=== PATIENT | female | born 1985 | race Caucasian/White ===

== ENCOUNTER 2019-03-08 15:50 | Emergency (ER) | payer SELFPAY ==
[2019-03-08 16:23] VITALS: BP 122/66; PULSE 98; TEMP 36.7; O2SAT 94
--- NOTE | 2019-03-08 16:30 | W.ED.GENAD ---
Discharge Plan Disposition Patient Disposition: HOME Condition: Fair Discharge Details Chief Complaint: SOB Clinical Impression: Bronchitis Primary Care Provider: Anjelica,Local ED Provider: Kayla Bhatt Home Meds and New Rx's Prescriptions: New prednisone 20 mg tablet 40 mg PO DAILY Qty: 8 RF: 0 benzonatate [Tessalon Perles] 100 mg capsule 100 mg PO TID PRN (Reason: cough) Qty: 10 RF: 0 doxycycline hyclate 100 mg capsule 100 mg PO BID Qty: 10 RF: 0 No Action albuterol sulfate [ProAir HFA] 90 mcg/actuation Hfa Aerosol Inhaler 2 puff INHALATION Q4H RF: 0 Discharge Instructions Instructions: Albuterol (By breathing), Acute Bronchitis (ED) Additional Instructions: Encourage hydration. Tylenol and ibuprofen as needed for discomfort. You were diagnosed with bronchitis today. This is typically a viral etiology. The prednisone will be of best benefit to you. You need to stop smoking. May use [id number] medications of sleep medic management. Honey to help with cough. Given 1 dose of prednisone here, next dose is due tomorrow night. You may use your albuterol inhaler 2 puffs every 4 hours as needed for shortness of breath or wheezing. Please always use a spacer. Begin your doxycycline if you develop fevers, more productive cough, symptoms are not improving over the next 48 hours. Our vision care associate will help establish primary care and follow-up within the next week for reevaluation. If you develop chest pain, difficulty breathing, shortness of breath or the new/worsening symptoms please seek care urgently once again. Stand Alone Forms: Work Release Discharge Data Discharge Date/Time-TO BE ENTERED AT DEPARTURE: 03/08/19 19:16 Medical Decision Making Patient is a 33-year-old presenting with chief complaint of URI. REports that symptoms began approximately 5 days ago. States intially symptoms were more in her head but now they have settled in my chest. Endorses SOB, particularly with cough. Has felt tight. Has used a friends allbuterol inhaler with good sympatomic improvement. No personal hx of asthma. Hx of psoriasis. Has not had symptoms like this historically. She is also endorsning abdominal pain only with cough. Reports 2 soft BM today. No change in urinary habits. Reports she is not sexually active. Denies fevers/chills. Denies sore throat, no ear pain. No recent travel. No recent abx. No abomdinal pain at this time. Surgical hx includes c-sections and bilateral ear tubes. Patient is an active smoker, smoked 1ppd. On exam, she does not appear to be in respiratory distress. She has diffuse expiratory wheezes. O2 slightly low at 94% on RA. Tachycardic at 98bpm. Normal cardiac exam. No beds at this tmie of abdominal exam, will exam once able. For now, will give albuterol nebulizer, obtain cxr, UPT. Discussed plan with patient hwo is in agreement. Chest x-ray reviewed by radiologist: FINDINGS: The heart is not enlarged. Lungs appear clear and well expanded. No pleural effusion seen. IMPRESSION: No evidence of acute process. Room is available for further examination and abdomen is benign. No peritoneal findings. No hepatosplenomegaly. No tenderness elicited with palpation. Patient is worsening if this is associated coughing. I advised this is likely muscular basis. No pain is elicited back, no CVA tenderness. Advised that this is likely linked there is no evidence at this time to suggest acute abdominal pathology. Patient was diagnosed with bronchitis. Patient will be given a prescription for Tessalon Perles cough. Prednisone to help with inflammatory changes. Am concerned that the patient may be developing a pneumonia or is at risk for this that she is a heavy smoker. She will be prescribed doxycycline with a watch and wait approach. She was given strict return precautions. I have asked that she follow-up with primary care. Patient does not have one established, I have asked her care according to help with this so that she may be seen within the next week. All of her questions and concerns were addressed and she is agreement plan. Patient's breathing is much improved, she is no longer wheezing and is resting comfortably. HPI General Mode of arrival: ambulatory. Date/Time Provider Initiated Documentation: 03/08/19 16:30. Limitations to Documentation: no limitations. Information obtained by: patient, family and RN notes reviewed. History of Present Illness 33 year old F presents to the emergency department with the chief complaint of cough, described as moderate, Quality is described as aching (abdominal discomfort with cough), Patient reports no radiation. Patient started experiencing this day(s) (5) and it has been constant. Medication improves symptom(s), (using someone elses albuterol inhaler with good relief of symptoms) No exacerbating factors reported . Patient notes cough, rash (chronic psoriasis) and shortness of breath (particularly with cough); denies chest pain, diaphoresis, fever/chills, headaches, loss of appetite, malaise, nausea/vomiting, syncope and weakness. Patient did receive the following treatments prior to arrival, none Related Data Home Medications Medication Instructions Recorded Confirmed albuterol sulfate [ProAir HFA] 2 puff INHALATION Q4H 03/08/19 03/08/19 benzonatate [Tessalon Perles] 100 mg PO TID PRN #10 cap 03/08/19 doxycycline hyclate 100 mg PO BID #10 cap 03/08/19 prednisone 40 mg PO DAILY #8 tab 03/08/19 Previous Rx's Medication Instructions Recorded benzonatate [Tessalon Perles] 100 mg PO TID PRN #10 cap 03/08/19 doxycycline hyclate 100 mg PO BID #10 cap 03/08/19 prednisone 40 mg PO DAILY #8 tab 03/08/19 Allergies Allergy/AdvReac Type Severity Reaction Status Date / Time No Known Allergies Allergy Unverified 03/08/19 16:27 General Stated Complaint: SOB CASSANDRA: 3 Review of Systems Constitutional Constitutional: Reports as per HPI and Denies headache(s) Eyes Eyes: Reports as per HPI, Denies eye discharge and Denies irritation ENT Ears, Nose, Mouth, and Throat: Reports as per HPI and Denies headache(s) Cardiovascular Cardiovascular: Reports as per HPI, Denies chest pain, Denies lightheadedness, Denies radiating jaw, neck or arm pain, Denies palpitations, Reports dyspnea (With cough) and Denies dyspnea on exertion Respiratory Respiratory: Reports as per HPI, Denies hemoptysis, Denies excessive phlegm production, Reports dyspnea (With cough) and Denies dyspnea on exertion Gastrointestinal Gastrointestinal: Reports as per HPI, Denies abdominal pain, Denies change in bowel habits, Denies nausea and Denies vomiting Integumentary/Breasts Skin/Breast: Reports as per HPI and Denies rash Neurologic Neurologic: Reports as per HPI and Denies headache(s) Endocrine Endocrine: Denies palpitations [facility] Social History Smoking/Tobacco Use Status: Current every day Tobacco Type: cigarettes Drug use: Never Do you feel safe in your relationship?: Yes Exam Const General: cooperative, healthy appearing, comfortable, no acute distress, well developed and well groomed Nutritional Appearance: average body habitus and well nourished Orientation: alert and awake [facility] Head: normal to inspection, normocephalic and atraumatic Ears: hearing grossly normal bilaterally, external ears normal and TM's normal bilaterally General nose exam: external nose normal and nares normal Face and sinus: normal facial exam, sinuses nontender and face symmetric Mouth: oral mucosae normal, lip normal, tongue normal, oropharynx normal and moist mucous membranes Teeth and gingiva: dentition normal Throat: posterior oropharynx normal, tonsils normal and uvula midline Eyes General: appearance normal, both eyes and all related structures Neck Neck: normal visual inspection, full ROM, no lymphadenopathy and no meningeal signs Resp Effort & Inspection: normal respiratory effort, able to speak in complete sentences and no respiratory distress Auscultation: no rales, no rhonchi and wheezes (Diffuse expiratory wheezes) Cardio Rate: regular rate Rhythm: regular rhythm Heart Sounds: S1 normal and S2 normal Skin General skin exam: no rashes or lesions noted Neuro General: alert and awake Cognition: normal cognition Speech: speech normal Gait: normal gait Psych Appearance: grossly normal and well kempt Mental Status: mental status grossly normal Speech and Movement: speech and movement normal Course Vital Signs Vital signs: Vital Signs Temperature 36.7 C 03/08/19 16:23 Pulse 98 H 03/08/19 16:23 Blood Pressure 122/66 03/08/19 16:23 Pulse Oximetry 94 L 03/08/19 16:23 Temperature 36.7 C 03/08/19 16:23 Temperature Source Tympanic 03/08/19 16:23 Pulse 98 H 03/08/19 16:23 Blood Pressure 122/66 03/08/19 16:23 Blood Pressure Position Sitting 03/08/19 16:23 Pulse Oximetry 94 L 03/08/19 16:23 Oxygen Delivery Method Room Air 03/08/19 16:23 Oxygen Flow Rate 0 03/08/19 16:23 Pain Level 0 03/08/19 16:23 Comment 03/08/19 16:23
--- NOTE | 2019-03-08 16:40 | DI.RAD_ITS ---
EXAM: XR CHEST 2V PA LATERAL INDICATION: cough, wheezing. COMPARISON: No exams were available for comparison TECHNIQUE: 2D digital imaging was performed. FINDINGS: The heart is not enlarged. Lungs appear clear and well expanded. No pleural effusion seen. IMPRESSION: No evidence of acute process.
[2019-03-08] MEDS: Albuterol 2.5 MG/3 ML INH SOLN VIAL UPD (17:06)
--- NOTE | 2019-03-08 18:54 | DI.VRAD_ITS ---
PROCEDURE INFORMATION: Exam: XR Chest, 2 Views Exam date and time: 03/08/2019 4:41 PM Clinical history: 33 years old, female; Cough and wheezing TECHNIQUE: Imaging protocol: XR of the chest Views: 2 views. COMPARISON: No relevant prior studies available. FINDINGS: Lungs: Unremarkable. No consolidation. Pleural space: Unremarkable. No pleural effusion. No pneumothorax. Heart/Mediastinum: Unremarkable. No cardiomegaly. Bones/joints: Unremarkable for patient's age. IMPRESSION: No acute findings. Dictated and Authenticated by: Kera Siddiqi MD. Ordering:PEE Garza MD
[2019-03-08] MEDS: Albuterol HFA 8 GM 60 PUFF INH IH (19:10)
[2019-03-08] MEDS: predniSONE 20 MG TAB 40 MG PO (19:11)
--- NOTE | 2019-03-08 19:16 | CMPROGNOTE_ITS ---
- If Service Date Differs Date of service: 03/08/19 Time of Service: 19:16 Care Management Progress Note Haley lives in [place] and works at [employer] in [place] [facility]. The ED provider asks that CM meets with Haley to assist her in establishing care with a primary care physician as she has bronchitis and will need a follow-up appointment next week. Haley shares that she is also without health insurance. She formerly had Medicaid but Medicaid was terminated when she went to work at [employer]. She is waiting for open enrollment to sign up for insurance through her employer. A: 33 yo female who presents in the ED for shortness of breath. P: Referrals faxed to [facility] for follow-up appointment and to [facility] for assistance with obtaining health insurance.
[2019-03-08 19:59] VITALS: RESP 18
== END 2019-03-08 19:16 | disposition home or self-care (01) ==
PROVIDERS: Emergency Provider Physician Assistant
DX: J20.9 Acute bronchitis, unspecified (principal); F17.210 Nicotine dependence, cigarettes, uncomplicated
CPT/HCPCS: 94640; 99283; 71046; J7512; J7613

== ENCOUNTER 2022-05-14 09:00 | Inpatient (IN) | payer BC, SELFPAY ==
[2022-05-14] VITALS (29 sets, daily range): BP systolic 59–153; BP diastolic 22–85; PULSE 78–132; RESP 4–30; TEMP 36.4–38.3; O2SAT 89–97
--- NOTE | 2022-05-14 10:08 | W.ED.GENAD ---
Discharge Plan Disposition Patient Disposition: Admit to [facility] Condition: Stable Discharge Details Chief Complaint: SOB Clinical Impression: Mediastinal air, Influenza, Asthma exacerbation Primary Care Provider: Sid Preciado ED Provider: Magdi Vargas Home Meds and New Rx's Prescriptions: No Action albuterol sulfate [ProAir HFA] 90 mcg/actuation Hfa Aerosol Inhaler 2 puff INHALATION Q4H Medical Decision Making 36 yo female with hx of asthma but has not had her steroid inhaler for awhile due to insurance reasons per patient, comes in with cc of shortness of breath and cough for 2 days. She has been using her albuterol inhaler with minimal relief. She denies chest pain/pressure, leg/calf pain, abdominal pain. She denies drug use. She is noted to be tachycardic to 130 on arrival and o2 saturation on my exam is 95% on room air. She is tachypneic on exam. She is able to speak in 4-5 word sentences. She has diffuse wheezing in all lung nguyễn bilaterally, no murmurs, no jvd, no leg swelling or calf tenderness. Given her history and exam suspect asthma exacerbation, will treat with duoneb, steroids and reassess. Given her tachycardia there is a possibility of PE but given her exam and history suspect this is asthma, if no improvement with initial therapy will consider cta. pt's HR now 110, still has wheezing diffusely and now complaining of anterior chest pain, will obtain cta CTA shows no PE, does have small amount of mediastinal free air along with with very small right apical ptx. Pt stable, still 90% on room air. Consulted general surgery Dr. Prajapati no acute interventions necessary should resolve without intervention. Given her continued hypoxia and wheezing will discuss with hospitalist about admission Differential Diagnosis Differential Diagnosis: asthma, pneumonia, covid Imaging Data Radiologic Study: Attestation: I personally reviewed and interpreted this imaging study as follows: Imaging: CT Scan Radiologist's impression: IMPRESSION: 1. No evidence of pulmonary embolism, thoracic aortic dissection or aneurysm.? 2. Pneumomediastinum. No definite evidence of esophageal or tracheal injury. Please correlate with patient clinical history. 3. Small focus of air seen adjacent to the right lung apex which may represent a tiny pneumothorax. 4. Findings were discussed with Dr. Vargas of the emergency department at 2:15 p.m. on 05/14/2022. Lab Data Lab results reviewed: Yes I reviewed the patient's lab results. Sign Out No HPI General Mode of arrival: ambulatory. Date/Time Provider Initiated Documentation: 05/14/22 09:39. Limitations to Documentation: no limitations. Information obtained by: patient. History of Present Illness 36 year old F presents to the emergency department with the chief complaint of shortness of breath, described as moderate, Patient started experiencing this day(s) (2) and it has been constant. Rest improves symptom(s), Movement worsens symptoms . Patient notes cough; denies chest pain. Patient did receive the following treatments prior to arrival, none Related Data Home Medications Medication Instructions Recorded Confirmed albuterol sulfate 90 mcg/actuation 2 puff inhalation Q4H 03/08/19 03/08/19 aerosol inhaler (ProAir HFA) Allergies Allergy/AdvReac Type Severity Reaction Status Date / Time No Known Allergies Allergy Unverified 03/08/19 16:27 General Stated Complaint: SOB CASSANDRA: 3 Review of Systems All systems reviewed & are unremarkable except as noted in HPI and below Constitutional Constitutional: Denies chills, Denies fever(s) and Denies weakness Cardiovascular Cardiovascular: Denies chest pain Gastrointestinal Gastrointestinal: Denies abdominal pain, Denies nausea and Denies vomiting Genitourinary Genitourinary: Denies dysuria Musculoskeletal Musculoskeletal: Denies joint swelling Integumentary/Breasts Skin/Breast: Denies rash Neurologic Neurologic: Denies weakness PFSH All Active Problems (Updated 05/14/22 @ 16:12 by Magdi Vargas MD) Mediastinal air (Acute) Influenza (Acute) Asthma exacerbation (Acute) Subcutaneous emphysema (Acute) Social History Smoking/Tobacco Use Status: Current every day Tobacco Type: cigarettes Smoking risk assessment performed?: Yes Alcohol Intake: never Drug use: Never Substance use type: does not use Do you feel safe at home: Yes Do you feel safe in your relationship?: Yes Exam Const Orientation: alert HENDE Head: normal to inspection Ears: external ears normal General nose exam: external nose normal Mouth: moist mucous membranes Eyes General: appearance normal, both eyes and all related structures Neck Neck: normal visual inspection Resp Effort & Inspection: audible wheezes and cough Cardio Jugular venous pressure: no JVD Rate: tachycardic Heart Sounds: no murmurs Skin General skin exam: no rashes or lesions noted Neuro General: patient alert and patient oriented x3 Extrem General: normal to inspection Psych Mental Status: mental status grossly normal Course Vital Signs Vital signs: Vital Signs Temperature 36.4 C L 05/14/22 09:17 Pulse 132 H 05/14/22 09:17 Respiratory Rate 16 05/14/22 09:17 Blood Pressure 119/85 05/14/22 09:17 Pulse Oximetry 92 05/14/22 09:17 Temperature 36.4 C L 05/14/22 09:17 Pulse 132 H 05/14/22 09:17 Respiratory Rate 16 05/14/22 09:17 Respiratory Effort 05/14/22 09:20 Blood Pressure 119/85 05/14/22 09:17 Blood Pressure Position Sitting 05/14/22 09:17 Pulse Oximetry 92 05/14/22 09:17 Oxygen Delivery Method Room Air 05/14/22 09:17 Oxygen Flow Rate 0 05/14/22 09:17 Pain Level 8 05/14/22 09:17
[2022-05-14] MEDS: Albuterol/Ipratropium 3 ML UPD VIAL UPD ×3 (10:20→22:07)
[2022-05-14 10:42] LABS: Abs Immature Grans 0.02 10^3/uL (0.0-0.06); Absolute Basophil Count 0.02 10^3/uL (0.0-0.2); Absolute Lymphocyte Count 0.25 10^3/uL (1.2-3.4); Absolute Neutrophil Count 6.04 10^3/uL (1.2-6.7); Basophils % 0.3; HCT 42.2 % (36.0-46.0); HGB 13.5 g/dL (11.2-15.7); Immature Grans % 0.3; Lymphocytes % 3.8; MCH 26.2 pg (27.0-33.0); MCV 82 fL (80-95); MPV 8.8 fL (8.0-11.0); Monocytes % 4.5; Neutrophils % 91.1; Platelet Count 217 10^3/uL (130-400); RBC 5.16 10^6/uL (3.93-5.22); RDW 13.8 % (11.7-14.6); RDW-SD 40.8 fL; WBC 6.63 10^3/uL (4.4-10.8)
[2022-05-14 10:52] LABS: COVID-19 PCR Negative (Negative); Influenza B PCR Negative (Negative); RSV PCR Negative (Negative)
[2022-05-14] MEDS: methylPREDNISolone SUCC 125 MG VIAL IVP ×2 (10:53→22:31)
[2022-05-14 10:54] LABS: Influenza A PCR Positive (Negative)
[2022-05-14 10:57] LABS: ALT 45 U/L (14-59); AST 40 U/L (15-37); Albumin 3.8 g/dL (3.4-5.0); Alkaline Phosphatase 55 U/L (46-116); Anion Gap 13.7 mmol/L (3-11); BUN 13 mg/dL (7-18); Bilirubin, Total 0.3 mg/dL (0.2-1.0); CO2 23.3 mmol/L (21.0-32.0); CREATININE 1.2 mg/dL (0.55-1.02); Calcium 9.2 mg/dL (8.5-10.1); Chloride 103 mmol/L (98-107); Estimated GFR 60.54 (mL/min/1.73m2); Glucose 157 mg/dL (74-106); Magnesium 1.9 mg/dL (1.8-2.4); Potassium 3.8 mmol/L (3.5-5.1); Sodium 140 mmol/L (136-145); Total Protein 7.9 g/dL (6.4-8.2)
--- NOTE | 2022-05-14 11:00 | DI.RAD_ITS ---
Exam(s) XR PORTABLE CHEST AP EXAM: XR PORTABLE CHEST AP CLINICAL HISTORY: shortness of breath TECHNIQUE: 2D digital imaging was performed of the chest. One image was obtained. An AP view was ob tained. COMPARISON: No exams were available for comparison FINDINGS: MEDIASTINUM: Normal. HEART: Normal. PULMONARY VASCULATURE: Normal. LUNGS: Clear. PLEURAL SPACE: No pleural effusion or pneumothorax. BONE:Within normal limits for the patient's age. OTHER FINDINGS:Normal. IMPRESSION: No acute pulmonary findings. DATA REPOSITORY: RADIATION DOSE DELIVERED:
--- NOTE | 2022-05-14 11:45 | DI.CT_ITS ---
Exam(s) CT CHEST PE CTA EXAM: CT CHEST PE CTA CLINICAL HISTORY: hypoxia, chest pain. TECHNIQUE: Imaging Protocol: Axial CT angiography was performed with multi-slice acquisition and mu lti-planar and/or 3D reconstructions. CONTRAST MATERIAL: Intravenous: Omnipaque 350 contrast volume:100 mL COMPARISON: CR XR PORTABLE CHEST AP from 05/14/2022 FINDINGS: The examination is limited due to patient motion artifact. Tracheobronchial tree: Patent where visualized. Pulmonary parenchyma: No consolidation or dominant measurable mass. No architectural distortion. Pulmonary Arteries: Evaluation of the several of the segmental and subsegmental pulmonary arteries ar e limited due to poor opacification. No central pulmonary embolus is seen. Mediastinum and Alyssa: There is air seen in the mediastinum extending into the soft tissues of the nec k in both axilla. The esophagus appears grossly unremarkable. Visualized thyroid gland: Unremarkable. Pleura: No effusion. Small focus of air seen along the right apex of the lung which may represent a t iny pneumothorax. Heart: The heart is not dilated. No coronary artery calcifications are seen. No pericardial effusion. Aorta: Thoracic aorta non-dilated. No evidence of dissection. Upper abdomen: There is diffuse fatty infiltration of the liver. Soft tissues: Unremarkable. Bones: Within normal limits for the patient's age. IMPRESSION: 1. No evidence of pulmonary embolism, thoracic aortic dissection or aneurysm. 2. Pneumomediastinum. No definite evidence of esophageal or tracheal injury. Please correlate with pa radha clinical history. 3. Small focus of air seen adjacent to the right lung apex which may represent a tiny pneumothorax. 4. Findings were discussed with Dr. Vargas of the emergency department at 2:15 p.m. on 05/14/2022. RADIATION DOSE DELIVERED: 720.39mGy.cm Total DLP DATA REPOSITORY: All CT scans at this facility are submitted to the National Radiology Data Registry (NRDR) Dose Index Registry (DIR) with the [employer] ([employer]). RADIATION OPTIMIZATION: All CT scans at this facility use at least one of these dose optimization te chniques: automated exposure control; mA and/or kV adjustment per patient size (includes targeted exa ms where dose is matched to clinical indication); or iterative reconstruction.
[2022-05-14 13:13] LABS: Troponin I < 50 ng/L (<or=60)
[2022-05-14] MEDS: Normal Saline 1,000 ML 1000 ML IV (13:18)
--- NOTE | 2022-05-14 13:21 | NUR.NOTE ---
Nursing Note: NS Bouls given late d/t nursing staff having difficulty placing IV line. Line placed via US by SHAILA RN in Right AC
[2022-05-14] MEDS: Omnipaque 350 MG/ML 100 ML BTL IJ (13:45)
[2022-05-14] MEDS: Normal Saline - Diluent 50 ML VIAL IJ (13:46)
--- NOTE | 2022-05-14 15:17 | SCONE_ITS ---
Date of service: 05/14/22 Time of Service: 15:17 Assessment and Plan Assessment and plan (1) Subcutaneous emphysema: Status: Acute Assessment and plan: I think this is most likely secondary to coughing as a symptom of the flu, combined with her asthma. I reviewed her CAT scans personally, I do not see any evidence of hypopharyngeal perforation, tracheal pathology, or any signs consistent with esophageal injury (like Boerhaave syndrome). This should resolve with supportive measures, especially as treatments for the flu are initiated. History of Present Illness History of Present Illness Chief Complaint: Subcutaneous emphysema Narrative: Montserrat is a 36-year-old woman with a past medical history that is most relevant for asthma comes into the emergency department several days of increasing cough. During her work-up in the emergency department, she underwent a CAT scan of the chest that demonstrated multiple areas of subcutaneous emphysema as well as some air around the mediastinum extending into the neck. However history, she tells me that she has had coughing nearly [id number] for the past several days. She did have 1 episode of some nausea and vomiting yesterday. She had a little bit of midepigastric pain that radiated towards her left side at that time, but that has resolved. She has no more nausea. She has no dysphagia or dyspepsia. Review of Systems Constitutional Constitutional: Reports body ache(s), Reports fatigue, Reports fever(s) and Reports poor appetite Eyes Eyes: Reports system reviewed and no additional complaints, except as documented ENT Ears, Nose, Mouth, and Throat: Denies hoarseness, Reports nasal congestion, Denies neck pain and Denies odynophagia Cardiovascular Cardiovascular: Denies chest pain, Reports dyspnea and Reports dyspnea on exertion Respiratory Respiratory: Reports cough, Denies hemoptysis, Denies pain on inspiration, R eports dyspnea, Reports dyspnea on exertion and Reports wheezing Gastrointestinal Gastrointestinal: Denies abdominal pain, Denies melena, Denies coffee ground emesis, Denies dyspepsia, Denies diarrhea, Reports nausea, Denies odynophagia and Reports vomiting Musculoskeletal Musculoskeletal: Reports myalgias and Denies neck pain Neurologic Neurologic: Reports system reviewed and no additional complaints, except as documented Psychiatric Psychiatric: Reports system reviewed and no additional complaints, except as documented Endocrine Endocrine: Reports fatigue Hematologic/Lymphatic Hematologic/Lymphatic: Denies easy bleeding and Denies easy bruising Allergic/Immunologic Allergic/Immunologic: Reports wheezing PFSH All Active Problems (Updated 05/14/22 @ 15:22 by Chuy Prajapati MD) Subcutaneous emphysema (Acute) Social History Smoking/Tobacco Use Status: Current every day Tobacco Type: cigarettes Smoking risk assessment performed?: Yes Alcohol Intake: never Drug use: Never Substance use type: does not use Do you feel safe at home: Yes Do you feel safe in your relationship?: Yes Exam Const General: cooperative, healthy appearing and comfortable Orientation: awake and oriented x3 HENMT Head: normal to inspection Mouth: oral mucosae normal Eyes General: appearance normal, both eyes and all related structures Conjunctivae: conjunctivae normal Sclera: sclerae normal Neck Neck: normal visual inspection, full ROM, no lymphadenopathy, trachea midline and supple Thyroid: thyroid normal Chest Other: I do not appreciate any subcutaneous emphysema on the neck, or around the clavicles. Resp Effort & Inspection: normal respiratory effort, able to speak in complete sentences, cough, not labored and no respiratory distress Cardio Jugular venous pressure: no JVD Rate: regular rate GI Inspection: non-distended Palpation: soft, no guarding, no hernias and nontender Skin General skin exam: normal turgor Neuro General: patient alert, patient awake and patient oriented x3 Cognition: normal cognition Extrem Right lower extremity: no edema Left lower extremity: no edema Results Last Vital Signs Temp 100.9 F H 05/14/22 13:10 Pulse 106 H 05/14/22 13:10 Resp 21 05/14/22 11:01 BP 119/62 05/14/22 13:10 Pulse Ox 91 L 05/14/22 13:10 Labs Result diagrams: 05/14/22 10:30 05/14/22 10:30 Labs: Laboratory Results - last 24 hr 05/14/22 05/14/22 05/14/22 10:09 10:30 10:30 WBC 6.63 RBC 5.16 Hgb 13.5 Hct 42.2 MCV 82 MCH 26.2 L MCHC 32.0 RDW 13.8 Plt Count 217 MPV 8.8 Immature Gran % 0.3 Neutrophils % 91.1 Lymphocytes % 3.8 Monocytes % 4.5 Eosinophils % 0.0 Basophils % 0.3 Nucleated RBC % 0.0 Absolute Neutrophils 6.04 Absolute Lymphocytes 0.25 L Absolute Monocytes 0.30 Absolute Eosinophils 0.00 Absolute Basophils 0.02 Sodium 140 Potassium 3.8 Chloride 103 Carbon Dioxide 23.3 Anion Gap 13.7 H BUN 13 Creatinine 1.2 H Est GFR (CKD-EPI 2020) 60.54 Glucose 157 H Calcium 9.2 Magnesium 1.9 Total Bilirubin 0.3 AST 40 H ALT 45 Alkaline Phosphatase 55 Troponin I Total Protein 7.9 Albumin 3.8 COVID-19 Source Not Applicable SARS-CoV-2 (PCR) Negative Influenza Type A (PCR) Positive A Influenza Type B (PCR) Negative RSV (PCR) Negative 05/14/22 10:30 WBC RBC Hgb Hct MCV MCH MCHC RDW Plt Count MPV Immature Gran % Neutrophils % Lymphocytes % Monocytes % Eosinophils % Basophils % Nucleated RBC % Absolute Neutrophils Absolute Lymphocytes Absolute Monocytes Absolute Eosinophils Absolute Basophils Sodium Potassium Chloride Carbon Dioxide Anion Gap BUN Creatinine Est GFR (CKD-EPI 2020) Glucose Calcium Magnesium Total Bilirubin AST ALT Alkaline Phosphatase Troponin I < 50 Total Protein Albumin COVID-19 Source SARS-CoV-2 (PCR) Influenza Type A (PCR) Influenza Type B (PCR) RSV (PCR)
[2022-05-14] MEDS: Albuterol 2.5 MG/3 ML INH SOLN VIAL UPD ×3 (15:32→20:34)
[2022-05-14] MEDS: ACETAMINOPHEN 1,000 MG/100 ML BTL 400 MG IVPB (15:33)
--- NOTE | 2022-05-14 19:42 | W.PM.HP.N ---
Date of service: 05/14/22 Time of Service: 18:00 Assessment and Plan Assessment and plan (1) Influenza: Status: Acute Assessment and plan: Influenza A + - Covid neg Cough, wheezing - nebulizers, tamiflu in the ED - however there isn't any more in the hospital, will give xofluza Tessilon pearls for cough related to influenza (2) Asthma exacerbation: Status: Acute Assessment and plan: Wheezing, tight; SPO2 low 90's; Nebulizers, steroids Incentive spirometer, acapella, peak flow Labs unremarkable; check 05/15 (3) Mediastinal air: Status: Acute Assessment and plan: Seen on CT, s/t vomiting and coughing - should resolve without intervention per surgery - monitor (4) Subcutaneous emphysema: Status: Acute Assessment and plan: Seen on CT, s/t vomiting and coughing - should resolve without intervention per surgery - monitor (5) DVT prophylaxis: Status: Acute Assessment and plan: Ambulatory - TEDS (6) Discharge planning issues: Status: Acute Assessment and plan: Home when stable - no services Discussed with Dr Madison History of Present Illness Narrative: This is a 36-year-old paient with a past medical history of asthma that presented to the [facility] emergency department with the chief complaint of several days of increasing cough.? During her work-up in the emergency department, she underwent a CT scan of the chest that demonstrated multiple areas of subcutaneous emphysema as well as some air around the mediastinum extending into the neck. However history, she tells me that she has had coughing nearly [id number] for the past several days.? She did have 1 episode of some nausea and vomiting yesterday.? She had a little bit of midepigastric pain that radiated towards her left side at that time, but that has resolved.? She has no more nausea.? She has no dysphagia or dyspepsia. She was seen by surgery and he feels that the subcutaneous emphysema is secondary to coughing from the flu that has exacerbated her asthma. It should resolve. She was wheezing despite her inhaler and tachycardic. She had a CT of her chest, no PE, some mediastinal free air. With her continued hypoxia and wheezing, SPO2 in the low 90's she is placed on observation status on the medical floor. Discussed with Dr Madison Review of Systems All systems reviewed & are unremarkable except as noted in HPI and below Constitutional Constitutional: Reports body ache(s), Reports fatigue, Reports fever(s) and Reports poor appetite Eyes Eyes: Reports system reviewed and no additional complaints, except as documented ENT Ears, Nose, Mouth, and Throat: Denies hoarseness, Reports nasal congestion, Denies neck pain and Denies odynophagia Cardiovascular Cardiovascular: Denies chest pain, Reports dyspnea and Reports dyspnea on exertion Respiratory Respiratory: Reports cough, Denies hemoptysis, Denies pain on inspiration, Reports dyspnea, Reports dyspnea on exertion and Reports wheezing Gastrointestinal Gastrointestinal: Denies abdominal pain, Denies melena, Denies coffee ground emesis, Denies dyspepsia, Denies diarrhea, Reports nausea, Denies odynophagia and Reports vomiting Musculoskeletal Musculoskeletal: Reports myalgias and Denies neck pain Neurologic Neurologic: Reports system reviewed and no additional complaints, except as documented Psychiatric Psychiatric: Reports system reviewed and no additional complaints, except as documented Endocrine Endocrine: Reports fatigue Hematologic/Lymphatic Hematologic/Lymphatic: Denies easy bleeding and Denies easy bruising Allergic/Immunologic Allergic/Immunologic: Reports wheezing PFSH All Active Problems (Updated 05/14/22 @ 20:04 by Beth Low NP) DVT prophylaxis (Acute) Discharge planning issues (Acute) Mediastinal air (Acute) Influenza (Acute) Asthma exacerbation (Acute) Subcutaneous emphysema (Acute) Social History Smoking/Tobacco Use Status: Current every day Tobacco Type: cigarettes Smoking risk assessment performed?: Yes Alcohol Intake: never Drug use: Never Substance use type: does not use Do you feel safe at home: Yes Do you feel safe in your relationship?: Yes Meds Allergies and Home Medications Allergies Allergy/AdvReac Type Severity Reaction Status Date / Time No Known Allergies Allergy Unverified 05/14/22 16:37 Home Medications Medication Instructions Recorded Confirmed Type albuterol sulfate 90 mcg/actuation 2 puff inhalation Q4H 03/08/19 05/14/22 History aerosol inhaler (ProAir HFA) Exam Const General: cooperative, healthy appearing and comfortable Orientation: awake and oriented x3 HENMT Head: normal to inspection Mouth: oral mucosae normal Eyes General: appearance normal, both eyes and all related structures Conjunctivae: conjunctivae normal Sclera: sclerae normal Neck Neck: normal visual inspection, full ROM, no lymphadenopathy, trachea midline and supple Thyroid: thyroid normal Chest Other: I do not appreciate any subcutaneous emphysema on the neck, or around the clavicles. Resp Effort & Inspection: normal respiratory effort, able to speak in complete sentences, cough, not labored and no respiratory distress Cardio Jugular venous pressure: no JVD Rate: regular rate GI Inspection: non-distended Palpation: soft, no guarding, no hernias and nontender Skin General skin exam: normal turgor Neuro General: patient alert, patient awake and patient oriented x3 Cognition: normal cognition Extrem Right lower extremity: no edema Left lower extremity: no edema Results Labs Result diagrams: 05/14/22 10:30 05/14/22 10:30 Labs: Laboratory Results - last 24 hr 05/14/22 05/14/22 05/14/22 10:09 10:30 10:30 WBC 6.63 RBC 5.16 Hgb 13.5 Hct 42.2 MCV 82 MCH 26.2 L MCHC 32.0 RDW 13.8 Plt Count 217 MPV 8.8 Immature Gran % 0.3 Neutrophils % 91.1 Lymphocytes % 3.8 Monocytes % 4.5 Eosinophils % 0.0 Basophils % 0.3 Nucleated RBC % 0.0 Absolute Neutrophils 6.04 Absolute Lymphocytes 0.25 L Absolute Monocytes 0.30 Absolute Eosinophils 0.00 Absolute Basophils 0.02 Sodium 140 Potassium 3.8 Chloride 103 Carbon Dioxide 23.3 Anion Gap 13.7 H BUN 13 Creatinine 1.2 H Est GFR (CKD-EPI 2020) 60.54 Glucose 157 H Calcium 9.2 Magnesium 1.9 Total Bilirubin 0.3 AST 40 H ALT 45 Alkaline Phosphatase 55 Troponin I Total Protein 7.9 Albumin 3.8 COVID-19 Source Not Applicable SARS-CoV-2 (PCR) Negative Influenza Type A (PCR) Positive A Influenza Type B (PCR) Negative RSV (PCR) Negative 05/14/22 10:30 WBC RBC Hgb Hct MCV MCH MCHC RDW Plt Count MPV Immature Gran % Neutrophils % Lymphocytes % Monocytes % Eosinophils % Basophils % Nucleated RBC % Absolute Neutrophils Absolute Lymphocytes Absolute Monocytes Absolute Eosinophils Absolute Basophils Sodium Potassium Chloride Carbon Dioxide Anion Gap BUN Creatinine Est GFR (CKD-EPI 2020) Glucose Calcium Magnesium Total Bilirubin AST ALT Alkaline Phosphatase Troponin I < 50 Total Protein Albumin COVID-19 Source SARS-CoV-2 (PCR) Influenza Type A (PCR) Influenza Type B (PCR) RSV (PCR) Last Vital Signs Temp 36.6 C 05/14/22 19:28 Pulse 99 H 05/14/22 19:28 Resp 20 05/14/22 19:28 BP 118/73 05/14/22 19:28 Pulse Ox 93 05/14/22 19:28
[2022-05-14] MEDS: Benzonatate 200 MG CAP PO (22:07)
[2022-05-15] VITALS (10 sets, daily range): BP systolic 107–129; BP diastolic 71–82; PULSE 64–110; RESP 1–24; TEMP 35.4–37.2; O2SAT 93–98
--- NOTE | 2022-05-15 | DI.RAD_ITS ---
Exam(s) XR CHEST 2V PA LATERAL EXAM: XR CHEST 2V PA LATERAL CLINICAL HISTORY: chest heaviness, ? pneumothorax TECHNIQUE: 2D digital imaging was performed of the chest. Two images were obtained. PA and lateral views were obtained. COMPARISON: CR XR PORTABLE CHEST AP from 05/14/2022 FINDINGS: MEDIASTINUM: Normal. HEART: Normal. PULMONARY VASCULATURE: Normal. LUNGS: Clear. PLEURAL SPACE: No pleural effusion or pneumothorax. BONE:Within normal limits for the patient's age. OTHER FINDINGS:Normal. IMPRESSION: No acute pulmonary findings. DATA REPOSITORY: RADIATION DOSE DELIVERED:
[2022-05-15] MEDS: Albuterol 2.5 MG/3 ML INH SOLN VIAL UPD ×5 (00:40→12:25)
[2022-05-15] MEDS: Acetaminophen 325 MG TAB PO (01:48)
[2022-05-15] MEDS: Benzonatate 200 MG CAP PO (02:21)
[2022-05-15] MEDS: LORazepam 0.5 MG TAB PO ×3 (02:22→21:45)
[2022-05-15] MEDS: Albuterol/Ipratropium 3 ML UPD VIAL UPD ×4 (04:07→21:45)
[2022-05-15] MEDS: methylPREDNISolone SUCC 125 MG VIAL IVP (06:30)
[2022-05-15] MEDS: Normal Saline Flush 10 ML SYR IVP ×3 (06:30→19:34)
[2022-05-15 06:53] LABS: Abs Immature Grans 0.05 10^3/uL (0.0-0.06); Absolute Basophil Count 0.01 10^3/uL (0.0-0.2); Absolute Lymphocyte Count 0.54 10^3/uL (1.2-3.4); Absolute Monocyte Count 0.29 10^3/uL (0.1-0.8); Absolute Neutrophil Count 8.51 10^3/uL (1.2-6.7); Basophils % 0.1; HCT 40.4 % (36.0-46.0); HGB 12.6 g/dL (11.2-15.7); Immature Grans % 0.5; Lymphocytes % 5.7; MCH 25.9 pg (27.0-33.0); MCHC 31.2 % (32.0-36.0); MCV 83 fL (80-95); MPV 8.6 fL (8.0-11.0); Monocytes % 3.1; Neutrophils % 90.6; Platelet Count 210 10^3/uL (130-400); RBC 4.87 10^6/uL (3.93-5.22); RDW 14.1 % (11.7-14.6); RDW-SD 42.8 fL
[2022-05-15 07:04] LABS: BUN 13 mg/dL (7-18); C-Reactive Protein 1.57 mg/dL (0.0-0.3); CREATININE 0.8 mg/dL (0.55-1.02); Calcium 9.1 mg/dL (8.5-10.1); Chloride 104 mmol/L (98-107); Estimated GFR 98.48 (mL/min/1.73m2); Glucose 160 mg/dL (74-106); Magnesium 2.4 mg/dL (1.8-2.4); Sodium 137 mmol/L (136-145)
[2022-05-15 07:53] LABS: Procalcitonin < 0.1 ng/mL
[2022-05-15] MEDS: predniSONE 20 MG TAB 40 MG PO (08:55)
--- NOTE | 2022-05-15 12:00 | RT.EKG_ITS ---
APPROVED REPORT Exam: Resting ECG Reason for Exam: chest pain Patient Location: I HR:77 bpm ECG Measurements Heart Rate 77 AXIS NJ 149 P 36 QRSd 84 QRS 66 QT 374 T 30 QTc 424 Conclusion Sinus arrhythmia...V-rate 57- 90, variation>10% Normal Electrocardiogram
--- NOTE | 2022-05-15 13:47 | INITIAL_ITS ---
- If Service Date Differs Date of service: 05/15/22 Time of Service: 13:47 Care Management Initial Assess REASON FOR HOSPITALIZATION:: Influenza, Asthma exacerbation PAST MEDICAL HISTORY/PAST SURGICAL HISTORY:: All Active Problems (Updated 05/14/22 @ 20:04 by Beth Low NP). DVT prophylaxis (Acute). Discharge planning issues (Acute). Mediastinal air (Acute). Influenza (Acute). Asthma exacerbation (Acute). Subcutaneous emphysema (Acute) PREVIOUS FUNCTIONAL STATUS/SOCIAL/FAMILY SUPPORTS:: Haley lives in [place] with her Paramjit and their 15 year old son. 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 CURRENT FUNCTIONAL STATUS:: Haley was lying in bed when CM met with her. She is awake, alert and engages in conversation. She is currenlty 93% on 4L NC. ADVANCE DIRECTIVES:: None on file, CM will offer forms. Has patient been provided with info about the portal/API?: Yes Did the patient sign up for the portal?: No CODE STATUS:: Full Code INSURANCE COVERAGE / FINANCIAL ISSUES:: BC/BS of [place] PRIMARY CARE PHYSICIAN:: Sid Preciado POTENTIAL DISCHARGE NEEDS:: Follow up appointment with PCP and Pulmonolgy. Return to work note. PATIENT/FAMILY EDUCATION NEEDS:: Review discharge instructions, limitations, medications and plan to follow up with community providers. Discuss ask me three and goals of self care. TRANSPORTATION:: via private vehicle with family. PLAN:: Anticipate, Haley will discharge home via private vehicle with family when medically ready. Pt will follow up with community providers and discharge plan of care as prescribed. She will need a return to work letter.
--- NOTE | 2022-05-15 14:24 | W.PM.PROGNOT ---
Date of Service Date of service: 05/15/22 Time of Service: 14:24 Assessment and Plan Assessment and plan (1) Influenza: Status: Acute Assessment and plan: Influenza A + - Covid neg Cough, wheezing - nebulizers, given xofluza Tessilon pearls for cough related to influenza continue to wean oxygen as able. (2) Asthma exacerbation: Status: Acute Assessment and plan: Wheezing, tight; SPO2 low 90's; Nebulizers, steroids Incentive spirometer, acapella, Labs unremarkable (3) Mediastinal air: Status: Acute Assessment and plan: Seen on CT, s/t vomiting and coughing - should resolve without intervention per surgery - monitor with new reports of chest heaviness cxr repeated with no evidence of pneumothorax, EKG with no acute st segment changes. (4) Subcutaneous emphysema: Status: Acute Assessment and plan: Seen on CT, s/t vomiting and coughing - should resolve without intervention per surgery - monitor (5) DVT prophylaxis: Status: Acute Assessment and plan: Ambulatory - TEDS (6) Discharge planning issues: Status: Acute Assessment and plan: Home when stable - no services Discussed with Dr Madison Subjective Subjective Patient reports: still having pain (chest heaviness), tolerating liquids well, tolerating a regular diet, shortness of breath (with activity) and afebrile; denies nausea or vomiting Interval history since last seen: reporting chest heaviness Exam Const General: cooperative, comfortable and ill appearing acutely Nutritional Appearance: obese Orientation: alert, awake and oriented x3 HENMT Head: normal to inspection, normocephalic and atraumatic Mouth: oral mucosae normal Resp Effort & Inspection: no audible wheezes, cough, labored and no respiratory distress Auscultation: diminished lung sounds and no wheezes Cardio Rate: regular rate Rhythm: regular rhythm Skin General skin exam: no rashes or lesions noted Objective Last Vital Signs Temp 36.6 C 05/15/22 12:05 Pulse 89 05/15/22 12:25 Resp 20 05/15/22 12:05 BP 121/75 05/15/22 12:05 Pulse Ox 95 05/15/22 12:25 Laboratory Results - last 24 hr 05/15/22 05/15/22 05/15/22 06:40 06:40 06:40 WBC 9.40 RBC 4.87 Hgb 12.6 Hct 40.4 MCV 83 MCH 25.9 L MCHC 31.2 L RDW 14.1 Plt Count 210 MPV 8.6 Immature Gran % 0.5 Neutrophils % 90.6 Lymphocytes % 5.7 Monocytes % 3.1 Eosinophils % 0.0 Basophils % 0.1 Nucleated RBC % 0.0 Absolute Neutrophils 8.51 H Absolute Lymphocytes 0.54 L Absolute Monocytes 0.29 Absolute Eosinophils 0.00 Absolute Basophils 0.01 Sodium 137 Potassium 4.0 Chloride 104 Carbon Dioxide 24.0 Anion Gap 9.0 BUN 13 Creatinine 0.8 Est GFR (CKD-EPI 2020) 98.48 Glucose 160 H Calcium 9.1 Magnesium 2.4 C-Reactive Protein 1.57 H Procalcitonin < 0.1
[2022-05-15] MEDS: Melatonin 3 MG TAB 9 MG PO (22:15)
[2022-05-16] VITALS (8 sets, daily range): BP systolic 102–133; BP diastolic 57–84; PULSE 65–81; RESP 4–22; TEMP 35.9–36.8; O2SAT 92–98
[2022-05-16] MEDS: Albuterol/Ipratropium 3 ML UPD VIAL UPD ×3 (06:19→20:52)
[2022-05-16 07:17] LABS: Abs Immature Grans 0.03 10^3/uL (0.0-0.06); Absolute Basophil Count 0.02 10^3/uL (0.0-0.2); Absolute Lymphocyte Count 1.99 10^3/uL (1.2-3.4); Absolute Monocyte Count 0.86 10^3/uL (0.1-0.8); Basophils % 0.2; HGB 12.6 g/dL (11.2-15.7); Immature Grans % 0.3; Lymphocytes % 17.1; MCH 25.9 pg (27.0-33.0); MCHC 30.7 % (32.0-36.0); MCV 84 fL (80-95); MPV 8.8 fL (8.0-11.0); Monocytes % 7.4; Platelet Count 214 10^3/uL (130-400); RBC 4.87 10^6/uL (3.93-5.22); RDW-SD 43.6 fL; WBC 11.64 10^3/uL (4.4-10.8)
[2022-05-16 07:49] LABS: Anion Gap 9.6 mmol/L (3-11); BUN 18 mg/dL (7-18); C-Reactive Protein 0.54 mg/dL (0.0-0.3); CO2 25.4 mmol/L (21.0-32.0); Calcium 8.8 mg/dL (8.5-10.1); Chloride 104 mmol/L (98-107); Estimated GFR 75.34 (mL/min/1.73m2); Glucose 109 mg/dL (74-106); Magnesium 1.9 mg/dL (1.8-2.4); Potassium 3.5 mmol/L (3.5-5.1); Sodium 139 mmol/L (136-145)
[2022-05-16 07:51] LABS: Absolute Neutrophil Count 8.73 10^3/uL (1.2-6.7)
[2022-05-16] MEDS: predniSONE 20 MG TAB 40 MG PO (08:39)
[2022-05-16] MEDS: Albuterol 2.5 MG/3 ML INH SOLN VIAL UPD (09:46)
[2022-05-16] MEDS: Potassium Chloride 20 MEQ TABCR PO ×2 (11:31→17:35)
--- NOTE | 2022-05-16 16:27 | W.PM.PROGNOT ---
Date of Service Date of service: 05/16/22 Time of Service: 16:27 Assessment and Plan Assessment and plan (1) Influenza: Status: Acute Assessment and plan: Influenza A + - Covid neg Cough, wheezing - nebulizers, given xofluza Tessilon pearls for cough related to influenza continue to wean oxygen as able. (2) Asthma exacerbation: Status: Acute Assessment and plan: Wheezing, tight; SPO2 low 90's; Nebulizers, steroids Incentive spirometer, acapella, Labs unremarkable (3) Mediastinal air: Status: Acute Assessment and plan: Seen on CT, s/t vomiting and coughing - should resolve without intervention per surgery - monitor with new reports of chest heaviness cxr repeated with no evidence of pneumothorax, EKG with no acute st segment changes. (4) Subcutaneous emphysema: Status: Acute Assessment and plan: Seen on CT, s/t vomiting and coughing - should resolve without intervention per surgery - monitor (5) DVT prophylaxis: Status: Acute Assessment and plan: Ambulatory - TEDS (6) Discharge planning issues: Status: Acute Assessment and plan: Home when stable - no services Discussed with Dr Madison Subjective Subjective Patient reports: no new complaints, tolerating liquids well, tolerating a regular diet, voiding w/o difficulty, shortness of breath and afebrile Exam Const General: cooperative, comfortable and ill appearing acutely Nutritional Appearance: obese Orientation: alert, awake and oriented x3 HENMT Head: normal to inspection, normocephalic and atraumatic Mouth: oral mucosae normal Resp Effort & Inspection: no audible wheezes, cough, labored and no respiratory distress Auscultation: diminished lung sounds and no wheezes Cardio Rate: regular rate Rhythm: regular rhythm Skin General skin exam: no rashes or lesions noted Objective Last Vital Signs Temp 36.0 C L 05/16/22 11:16 Pulse 66 05/16/22 14:56 Resp 14 05/16/22 14:56 BP 102/72 05/16/22 11:16 Pulse Ox 97 05/16/22 11:16 Laboratory Results - last 24 hr 05/16/22 05/16/22 07:00 07:00 WBC 11.64 H RBC 4.87 Hgb 12.6 Hct 41.0 MCV 84 MCH 25.9 L MCHC 30.7 L RDW 14.0 Plt Count 214 MPV 8.8 Immature Gran % 0.3 Neutrophils % 75.0 Lymphocytes % 17.1 Monocytes % 7.4 Eosinophils % 0.0 Basophils % 0.2 Nucleated RBC % 0.0 Absolute Neutrophils 8.73 H Absolute Lymphocytes 1.99 Absolute Monocytes 0.86 H Absolute Eosinophils 0.00 Absolute Basophils 0.02 Sodium 139 Potassium 3.5 Chloride 104 Carbon Dioxide 25.4 Anion Gap 9.6 BUN 18 Creatinine 1.0 Est GFR (CKD-EPI 2020) 75.34 Glucose 109 H Calcium 8.8 Magnesium 1.9 C-Reactive Protein 0.54 H
[2022-05-16] MEDS: Benzonatate 200 MG CAP PO (20:52)
[2022-05-16] MEDS: Melatonin 3 MG TAB 9 MG PO (20:52)
[2022-05-16] MEDS: LORazepam 1 MG TAB PO (20:53)
[2022-05-16] MEDS: Normal Saline Flush 10 ML SYR IVP (20:54)
[2022-05-17] VITALS (8 sets, daily range): BP systolic 101–118; BP diastolic 69–70; PULSE 55–103; RESP 7–20; TEMP 36.1–36.7; O2SAT 93–97
[2022-05-17] MEDS: predniSONE 20 MG TAB 40 MG PO (08:12)
[2022-05-17] MEDS: Potassium Chloride 20 MEQ TABCR PO (08:12)
[2022-05-17] MEDS: Albuterol/Ipratropium 3 ML UPD VIAL UPD (08:49)
[2022-05-17] MEDS: LORazepam 1 MG TAB PO (10:59)
--- NOTE | 2022-05-17 12:10 | W.PM.DS.N ---
Date of service: 05/17/22 Time of Service: 12:10 DS: Diagnosis Discharge Diagnosis (1) Influenza: Status: Acute (2) Asthma exacerbation: Status: Acute (3) Mediastinal air: Status: Acute (4) Subcutaneous emphysema: Status: Acute Discharge Plan Disposition Patient Disposition: Home Condition: Improving Discharge Details Reason For Visit: Influenza A Admit Date/Time: 05/16/22 16:50 Admit Provider: Lee Riley Attending Provider: Lee Riley Primary Care Provider: Sid Preciado Hospital Course Hospital Course: This is a 36 year old with history of asthma who presented to the ED with increasing cough. Her work up in the ED did show she was positive for influenza A, she underwent a CT scan of the chest that demonstrated multiple areas of subcutaneous emphysema as well as some air around the mediastinum extending into the neck. She was given xofluza as tamiflu not available. She was started on steroids, aggressive inhalers, tessilon pearls. Surgical consult placed for mediastinal air with observation recommendations at this time. While hospitalized she remained hemodynamically stable. She was slowly weaned off the oxygen and was able to maintain sats greater than 93 % on an ambulatory oximetry challenge. She will discharged on a steroid taper. She is discharged to home with no services. discussed with Dr Riley. Home Meds and New Rx's Prescriptions: New benzonatate 200 mg Capsule 200 mg PO TID PRN PRN (Reason: Cough) Qty: 30 0RF prednisone 20 mg Tablet See Taper PO DAILY Qty: 10 0RF Taper: Prednisone 20mg taper 40 mg Daily for 2 Days and 0 Hour 20 mg Daily for 2 Days and 0 Hour 10 mg Daily for 2 Days and 0 Hour Continued albuterol sulfate [ProAir HFA] 90 mcg/actuation Hfa Aerosol Inhaler 2 puff INHALATION Q4H Discharge Instructions Instructions: Influenza (DC) Stand Alone Forms: Nursing Discharge Form Referrals: Sid Preciado [Primary Care Provider] - (Please call Wednesday to make a follow up appointment.) Activity:: Activity as Tolerated Equipment/Supplies:: No Equipment Needed Diet:: As Tolerated Discharge Orders Discharge Orders: Discharge Order (Routine); Ordered 05/17/22 Ordered By: Tierra Vo DS: Summary Time Spent with Patient providing and/or coordinating discharge services: Less than 30 minutes Status at Discharge Functional status at discharge: independent ambulation Overall status at discharge: patient is progressing back to baseline Mental Status: mental status grossly normal Speech and Movement: speech and movement normal Mood: congruent mood Affect: normal affect Exam Const General: cooperative and comfortable Nutritional Appearance: obese Orientation: alert, awake and oriented x3 HENMT Head: normal to inspection, normocephalic and atraumatic Mouth: oral mucosae normal Resp Effort & Inspection: no audible wheezes and no respiratory distress Auscultation: diminished lung sounds and no wheezes Cardio Rate: regular rate Rhythm: regular rhythm Skin General skin exam: no rashes or lesions noted Psych Mental Status: mental status grossly normal Speech and Movement: speech and movement normal Mood: congruent mood Affect: normal affect DS: Data Vitals/I&O Vitals and I&O: Vital Signs Temperature 36.5 C 05/17/22 11:50 Temperature Source Tympanic 05/17/22 11:50 Pulse 79 05/17/22 11:50 Pulse Rhythm Regular 05/17/22 05:43 Pulse 123 H 05/14/22 16:16 Respiratory Rate 20 05/17/22 11:50 Respiratory Effort 05/17/22 05:43 Respiratory Depth Normal 05/17/22 05:43 Respiratory Pattern Normal 05/17/22 05:43 Blood Pressure 101/70 05/17/22 11:50 Blood Pressure Mean 66 05/14/22 16:16 Blood Pressure Position Sitting 05/14/22 09:17 Pulse Oximetry 93 05/17/22 11:50 Oxygen Delivery Method Room Air 05/17/22 11:50 Oxygen Flow Rate 0 05/17/22 11:50 Fraction of Inspired Oxygen (FIO2) 23 05/17/22 08:49 Pain Level 0 05/17/22 08:08 Comment 05/17/22 09:20 Intake & Output 05/16/22 05/17/22 05/17/22 23:59 11:59 23:59 Intake Total 120 / 120 720 / 720 Balance 120 / -230 720 / 720 Intake: Oral 120 / 120 720 / 720 Other: Urine Color Yellow Pale Yellow Urine Appearance Clear Clear Urine Odor Normal Normal Comment Per pt. report, void x1 in the bedside commode. Pt. states her emptied it. Voiding Methods Bedside Commode Bedside Commode Incontinent Data Completed and Pending Labs on day of discharge: Preliminary micro results at discharge 05/15/22 06:40 Blood Culture - Preliminary Blood NO GROWTH 48 HOURS 05/14/22 19:12 Blood Culture - Preliminary Blood NO GROWTH 48 HOURS PFSH All Active Problems (Updated 05/14/22 @ 20:04 by Beth Low NP) DVT prophylaxis (Acute) Discharge planning issues (Acute) Mediastinal air (Acute) Influenza (Acute) Asthma exacerbation (Acute) Subcutaneous emphysema (Acute) Social History Smoking/Tobacco Use Status: Current every day Tobacco Type: cigarettes Smoking risk assessment performed?: Yes Alcohol Intake: never Drug use: Never Substance use type: does not use Do you feel safe at home: Yes Do you feel safe in your relationship?: Yes
--- NOTE | 2022-05-17 14:02 | PDOC.CMDIS ---
- If Service Date Differs Date of service: 05/17/22 Time of Service: 14:02 LACE Index Scoring Tool - Questions: Length of Stay (in days): 1 Acuity (Admit via E.D.?): Yes E.D. Visits: 1 - Answers: Total Score: 5 Risk of Readmission: Low Risk Care Management Discharge Reason for Hospitalization: Influenza, Asthma exacerbation Discharge Plan: Haley will return home today with no new services. Her spouse will drive her home via private vehicle. CM provided a return to work letter, at the provider's request. She will follow up with her PCP and discharge plan of care. Patient/Family Education Needs: Review discharge instructions and limitations, discussion of self care needs including ask me three.
== END 2022-05-17 13:41 | disposition home or self-care (01) | DRG 194 ==
LOC: ER 16:36 → MS 16:51
PROVIDERS: Nurse Practitioner Family; Admitting Provider Internal Medicine; Emergency Provider Emergency Medicine; PCP Family Medicine; Visit Provider Internal Medicine
DX: J10.1 Influenza due to other identified influenza virus with other respiratory manifestations (principal); J45.901 Unspecified asthma with (acute) exacerbation; J98.2 Interstitial emphysema; F17.210 Nicotine dependence, cigarettes, uncomplicated; R07.89 Other chest pain; R05.1 Acute cough
CPT/HCPCS: 36415; 71275; 80048; 80053; 84145; 87040; 87637; 94618; 94640; 96361; 96365; 96375; 99285; 71045; 71046; 83735; 84484; 85025; 86140; 93005; 93010; 99219; 99225; 99232; 99239; J0131; J2930; J3490; J7512; J7613; J7620

== ENCOUNTER 2023-06-29 15:26 | Emergency (ER) | payer BC, SELFPAY ==
[2023-06-29 15:29] VITALS: BP 174/89; PULSE 92; RESP 20; TEMP 37; O2SAT 98
--- NOTE | 2023-06-29 15:30 | DI.RAD_ITS ---
Exam(s) XR CHEST 2V PA LATERAL EXAM: XR CHEST 2V PA LATERAL CLINICAL HISTORY: shortness of breath TECHNIQUE: 2D digital imaging was performed. COMPARISON: CR XR CHEST 2V PA LATERAL from 05/15/2022 FINDINGS: Exam limited by overlying monitoring leads and underwire bra. HEART: Normal size. Aorta: Not dilated. PULMONARY VASCULATURE: Normal. LUNGS: Clear. PLEURAL SPACE: No pleural effusion or pneumothorax. BONE:Unremarkable for age. Soft tissues: Unremarkable. IMPRESSION: No acute abnormality. DATA REPOSITORY: RADIATION DOSE DELIVERED:
--- NOTE | 2023-06-29 15:30 | RT.EKG_ITS ---
APPROVED REPORT Exam: Resting ECG Reason for Exam: palpitations Patient Location: E HR:86 bpm ECG Measurements Heart Rate 86 AXIS WI 160 P 38 QRSd 81 QRS 61 QT 369 T 41 QTc 444 Conclusion Sinus rhythm...normal P axis, V-rate 60- 99
[2023-06-29 15:47] VITALS: PULSE 87
[2023-06-29 16:03] LABS: Abs Immature Grans 0.04 10^3/uL (0.0-0.06); Absolute Basophil Count 0.07 10^3/uL (0.0-0.2); Absolute Eosinophil Count 0.51 10^3/uL (0.0-0.7); Absolute Lymphocyte Count 2.84 10^3/uL (1.2-3.4); Absolute Monocyte Count 0.67 10^3/uL (0.1-0.8); Absolute Neutrophil Count 6.72 10^3/uL (1.2-6.7); Basophils % 0.6; Eosinophils % 4.7; HCT 37.8 % (36.0-46.0); HGB 11.6 g/dL (11.2-15.7); Immature Grans % 0.4; Lymphocytes % 26.2; MCH 23.8 pg (27.0-33.0); MCHC 30.7 % (32.0-36.0); MCV 78 fL (80-95); MPV 8.6 fL (8.0-11.0); Monocytes % 6.2; Neutrophils % 61.9; Platelet Count 284 10^3/uL (130-400); RBC 4.87 10^6/uL (3.93-5.22); RDW 14.2 % (11.7-14.6); RDW-SD 39.7 fL; WBC 10.85 10^3/uL (4.4-10.8)
--- NOTE | 2023-06-29 16:11 | ED.GENADUL_ITS ---
HPI General Date/Time Provider Initiated Documentation: 06/29/23 15:35 . HPI Narrative: this 37 yo female presents with report of palpitations since event monitor being placed this morning. states yesterday had prednisone and azithromycin initiated with concern of bronchitis. denies any additional new meidcations aside from the prednisone and azithromycin. Denies chance of . Denies illicit drug use. Denies caffeine use. Denies any calf pain or swelling, denies recent flights, surgeries, long drives. Denies history of coagulopathy. Denies tobacco use. Denies any early family history of coronary artery disease or any associated chest discomfort. States when she has a palpitation it takes her breath away. Related Data Home Medications Medication Instructions Recorded Confirmed albuterol sulfate 90 mcg/actuation 2 puff inhalation Q4H 03/08/19 06/29/23 aerosol inhaler (ProAir HFA) azithromycin 250 mg tablet See Rx Instructions PO .COMPLEX 06/29/23 06/29/23 bupropion HCl 150 mg 24 hr tablet, 150 mg PO DAILY 06/29/23 06/29/23 extended release potassium chloride 20 mEq 20 meq PO DAILY #10 tabs 06/29/23 tablet,extended release prednisone 10 mg tablet 10 mg PO DIRECTED 06/29/23 06/29/23 sertraline 50 mg tablet 50 mg PO DAILY 06/29/23 06/29/23 Previous Rx's Medication Instructions Recorded potassium chloride 20 mEq 20 meq PO DAILY #10 tabs 06/29/23 tablet,extended release Allergies Allergy/AdvReac Type Severity Reaction Status Date / Time No Known Allergies Allergy Unverified 06/29/23 15:32 General Stated Complaint: Palpitatns CASSANDRA: 3 Course Vital Signs Vital signs: Vital Signs Temperature 37.0 C 06/29/23 15:29 Pulse 92 H 06/29/23 15:29 Respiratory Rate 20 06/29/23 15:29 Blood Pressure 174/89 H 06/29/23 15:29 Pulse Oximetry 98 06/29/23 15:29 Temperature 37.0 C 06/29/23 15:29 Temperature Source Temporal Artery Scan 06/29/23 15:29 Pulse 87 06/29/23 15:47 Respiratory Rate 20 06/29/23 15:29 Respiratory Effort Normal, Non-Labored 06/29/23 15:36 Blood Pressure 174/89 H 06/29/23 15:29 Blood Pressure Position Sitting 06/29/23 15:29 Pulse Oximetry 98 06/29/23 15:29 Oxygen Delivery Method Room Air 06/29/23 15:29 Oxygen Flow Rate 0 06/29/23 15:29 Pain Level 0 06/29/23 15:29 Lab/Test Results Lab/Test Results: Laboratory Tests Range/Units 06/29/23 15:56 WBC (4.4-10.8) 10^3/uL 10.85 H RBC (3.93-5.22) 10^6/uL 4.87 Hgb (11.2-15.7) g/dL 11.6 Hct (36.0-46.0) % 37.8 MCV (80-95) fL 78 L MCH (27.0-33.0) pg 23.8 L MCHC (32.0-36.0) % 30.7 L RDW (11.7-14.6) % 14.2 Plt Count (130-400) 10^3/uL 284 MPV (8.0-11.0) fL 8.6 Immature Gran % 0.4 Neutrophils % 61.9 Lymphocytes % 26.2 Monocytes % 6.2 Eosinophils % 4.7 Basophils % 0.6 Nucleated RBC % (0.0-0.3) % 0.0 Absolute Neutrophils (1.2-6.7) 10^3/uL 6.72 H Absolute Lymphocytes (1.2-3.4) 10^3/uL 2.84 Absolute Monocytes (0.1-0.8) 10^3/uL 0.67 Absolute Eosinophils (0.0-0.7) 10^3/uL 0.51 Absolute Basophils (0.0-0.2) 10^3/uL 0.07 Medical Decision Making 37-year-old female presenting with palpitations which started this morning. States she was started on prednisone and Flovent in addition to azithromycin yesterday Patient appears well, she has very mild wheezing most notably on the left side, chest x-ray without evidence of infiltrate or other acute abnormality per radiology interpretation my review No hypoxia EKG without obvious abnormality, PAC monitor Low suspicion clinically for pulmonary embolism, PERC negative Unsure as to the etiology of patient's palpitations, she has a Zio patch in place She is encouraged to stop taking the prednisone and see if it helps with her symptoms She will continue to monitor and follow-up with her doctor TSH and mag within normal limits, potassium 3.1, will supplement with home magnesium p.o. Discharged home in stable condition with stable vitals and encouraged follow-up with primary care physician Will reinitiate prednisone if her symptoms or not improving within the next several days, should her symptoms worsen she is given low threshold to return for reassessment Was observed for approximately 2 hours on telemetry monitoring, no obvious dysrhythmia noted Quality:SDOH Health Related Social Needs: No Data to Display PFSH All Active Problems (Updated 06/29/23 @ 17:13 by LETY Johns) Hypokalemia (Acute) Palpitations (Acute) Mediastinal air (Acute) Influenza (Acute) Asthma exacerbation (Acute) Subcutaneous emphysema (Acute) Social History Smoking/Tobacco Use Status: Former Tobacco Use Smoking risk assessment performed?: Yes Alcohol Intake: never Drug use: Never Substance use type: does not use Do you feel safe at home: Yes Do you feel safe in your relationship?: Yes Discharge Plan Disposition Patient Disposition: Home Discharge Details Clinical Impression: Palpitations, Hypokalemia Primary Care Provider: Pita Briseno ED Provider: Raeann Welsh Home Meds and New Rx's Prescriptions: New potassium chloride 20 mEq tablet extended release 20 meq PO DAILY Qty: 10 0RF Continued albuterol sulfate [ProAir HFA] 90 mcg/actuation Hfa Aerosol Inhaler 2 puff INHALATION Q4H sertraline 50 mg tablet 50 mg PO DAILY Patient Comments: TAKE ONE TABLET BY MOUTH EVERY DAY bupropion HCl 150 mg tablet extended release 24 hr 150 mg PO DAILY Patient Comments: TAKE ONE TABLET BY MOUTH EVERY DAY azithromycin 250 mg tablet See Rx Instructions .ROUTE .COMPLEX Rx Instructions: For 250 mg dose pack: take 500 mg today (day 1), then 250 mg for 4 days (days 2-5) prednisone 10 mg tablet 10 mg PO DIRECTED Rx Instructions: see taper instructions Discharge Instructions Instructions: Heart Palpitations (ED) Additional Instructions: Stop taking the oral prednisone Continue on your Flovent twice a day, brush your tongue and teeth after taking the Flovent and always use your spacer with your albuterol and the Flovent I wonder if the prednisone is causing your palpitations, this is a side effect or can be a side effect of taking this medication You may continue on all your other prescribed medications and see how you feel, will likely notice improvement with the prednisone is out of your system Stay away from caffeine take potassium as prescribed Follow-up with your doctor regarding your Zio patch and return earlier should you have new or worsening complaints Stand Alone Forms: Work Release Referrals: Pita Briseno [Primary Care Provider] -
[2023-06-29 16:27] LABS: ALT 43 U/L (14-59); AST 37 U/L (15-37); Albumin 3.4 g/dL (3.4-5.0); Alkaline Phosphatase 69 U/L (46-116); Anion Gap 10.9 mmol/L (3-11); BUN 9 mg/dL (7-18); Bilirubin, Total 0.4 mg/dL (0.2-1.0); CO2 25.1 mmol/L (21.0-32.0); CREATININE 0.9 mg/dL (0.55-1.02); Calcium 8.9 mg/dL (8.5-10.1); Chloride 104 mmol/L (98-107); Estimated GFR 84.97 (mL/min/1.73m2); Glucose 119 mg/dL (74-106); Potassium 3.1 mmol/L (3.5-5.1); Sodium 140 mmol/L (136-145); Total Protein 7.5 g/dL (6.4-8.2); Troponin I < 50 ng/L (< or =60)
[2023-06-29 16:52] VITALS: BP 144/86; PULSE 76; RESP 18; TEMP 36.8; O2SAT 96
[2023-06-29] MEDS: Potassium Chloride 20 MEQ TABCR PO (17:16)
== END 2023-06-29 17:21 | disposition home or self-care (01) ==
PROVIDERS: Emergency Provider Physician Assistant; PCP Nurse Practitioner Family
DX: R00.2 Palpitations (principal); R06.02 Shortness of breath; E87.6 Hypokalemia; Z87.891 Personal history of nicotine dependence
CPT/HCPCS: 80053; 81025; 93005; 99283; 71046; 84443; 84484; 85025; 93010

== ENCOUNTER 2023-08-05 13:25 | Outpatient (REF) | payer BC, SELFPAY ==
[2023-08-05 13:46] LABS: Abs Immature Grans 0.02 10^3/uL (0.0-0.06); Absolute Basophil Count 0.08 10^3/uL (0.0-0.2); Absolute Lymphocyte Count 2.27 10^3/uL (1.2-3.4); Absolute Monocyte Count 0.81 10^3/uL (0.1-0.8); Absolute Neutrophil Count 6.37 10^3/uL (1.2-6.7); Basophils % 0.8; Eosinophils % 8.6; HCT 38.8 % (36.0-46.0); HGB 12.5 g/dL (11.2-15.7); Immature Grans % 0.2; Lymphocytes % 21.7; MCH 24.7 pg (27.0-33.0); MCHC 32.2 % (32.0-36.0); MCV 77 fL (80-95); MPV 9.8 fL (8.0-11.0); Monocytes % 7.8; Neutrophils % 60.9; Platelet Count 367 10^3/uL (130-400); RBC 5.06 10^6/uL (3.93-5.22); RDW 14.4 % (11.7-14.6); RDW-SD 39.7 fL; WBC 10.45 10^3/uL (4.4-10.8)
[2023-08-06 08:36] LABS: IgE 871 IU/mL (<158)
== END 2023-08-05 13:26 | disposition home or self-care (01) ==
LOC: LBN 13:25
PROVIDERS: PCP Nurse Practitioner Family; Visit Provider Physician Assistant Surgical
DX: J45.909 Unspecified asthma, uncomplicated (principal)
CPT/HCPCS: 82785; 85025

== ENCOUNTER 2023-08-06 03:17 | Outpatient (CLI) | payer BC, SELFPAY ==
[2023-08-06] MEDS: Inhaler, Assist Device 1 EACH MC (09:13)
[2023-08-06] MEDS: Levalbuterol HFA 15 GM INH 4 PUFF IH (09:13)
--- NOTE | 2023-08-06 12:20 | W.PFT ---
Date of service: 08/06/23 Time of Service: 07:58 Pulmonary Function Test Result Indications: Asthma Interpretation Spirometry: There is moderate airflow limitation. There is a significant bronchodilator response. Lung Volumes: There is hyperinflation and air trapping Diffusion Capacity: Normal diffusion Airway Pressure: Increased airway resistance Impression Moderate airflow obstruction with a bronchodilator response, air trapping and increased airway resistance. This could be consistent with Asthma-COPD Overlap Syndrome. Clinical Correlation therefore is recommended.
== END 2023-08-06 03:18 | disposition home or self-care (01) ==
PROVIDERS: PCP Nurse Practitioner Family; Visit Provider Physician Assistant Surgical
DX: J45.909 Unspecified asthma, uncomplicated (principal); R94.2 Abnormal results of pulmonary function studies
CPT/HCPCS: 94060; 94726; 94729

== ENCOUNTER → 2023-09-06 18:12 | Outpatient (CLI) | payer BC, SELFPAY ==
--- NOTE | 2023-09-06 18:15 | DI.RAD_ITS ---
Exam(s) XR CHEST 2V PA LATERAL EXAM: XR CHEST 2V PA LATERAL CLINICAL HISTORY: evaluate pna. TECHNIQUE: 2D digital imaging was performed. COMPARISON: CR XR CHEST 2V PA LATERAL from 06/29/2023 FINDINGS: 2 views: Heart size is normal. The mediastinum is not widened. Lungs are clear. No infiltrates nor pleural effusions. IMPRESSION: No acute pulmonary findings. DATA REPOSITORY: RADIATION DOSE DELIVERED:
--- NOTE | 2023-09-06 19:13 | DI.VRAD_ITS ---
PROCEDURE INFORMATION: Exam: XR Chest Exam date and time: 09/06/2023 6:26 PM Age: 37 years old Clinical indication: Other: Evaluate pna TECHNIQUE: Imaging protocol: Radiologic exam of the chest. Views: 2 views. COMPARISON: CR XR CHEST 2V PA LATERAL 06/29/2023 4:26 PM FINDINGS: Lungs: No focal consolidation. Pleural spaces: No pleural effusion. No pneumothorax. Heart/Mediastinum: No cardiomegaly. Bones/joints: No acute findings. IMPRESSION: No focal consolidation. Dictated and Authenticated by: Good Hernandez MD. Ordering:JHONY Preston MD
== END ==
PROVIDERS: PCP Nurse Practitioner Family; Visit Provider Nurse Practitioner Family
DX: J45.909 Unspecified asthma, uncomplicated (principal)
CPT/HCPCS: 71046

== ENCOUNTER 2024-03-08 17:06 | Outpatient (REF) | payer BC, SELFPAY ==
--- NOTE | 2024-03-08 17:15 | DI.RAD_ITS ---
Exam(s) XR CHEST 2V PA LATERAL EXAM: XR CHEST 2V PA LATERAL CLINICAL HISTORY: evaluate pna TECHNIQUE: 2D digital imaging was performed of the chest. Two images were obtained. PA and lateral views were obtained. COMPARISON: CR,XR XR CHEST 2V PA LATERAL from 09/06/2023 FINDINGS: MEDIASTINUM: Normal. HEART: Normal. PULMONARY VASCULATURE: Normal. LUNGS: Clear. PLEURAL SPACE: No pleural effusion or pneumothorax. BONE:Within normal limits for the patient's age. OTHER FINDINGS:Normal. IMPRESSION: No acute pulmonary findings. DATA REPOSITORY: RADIATION DOSE DELIVERED:
--- NOTE | 2024-03-08 17:41 | DI.VRAD_ITS ---
PROCEDURE INFORMATION: Exam: XR Chest Exam date and time: 03/08/2024 5:25 PM Age: 38 years old Clinical indication: Cough and other: Evaluate pna, unspecified asthma with acute exacerbation TECHNIQUE: Imaging protocol: Radiologic exam of the chest. Views: 2 views. COMPARISON: CR XR CHEST 2V PA LATERAL 09/06/2023 6:26 PM FINDINGS: Lungs: The lungs are clear. There is no pulmonary vascular congestion. Pleural spaces: There are no pleural effusions present. There is no evidence of pneumothorax. Heart/Mediastinum: The cardiomediastinal silhouette is within normal limits. Bones/joints: Again noted is mild levoscoliosis centered around the thoracolumbar junction, not well evaluated on these films. IMPRESSION: No active cardiopulmonary disease identified. Dictated and Authenticated by: Maximilian Sargent MD. Ordering:JHONY Preston MD
== END 2024-03-08 17:26 ==
LOC: DI 17:06
PROVIDERS: Visit Provider Nurse Practitioner Family
DX: J45.901 Unspecified asthma with (acute) exacerbation (principal)
CPT/HCPCS: 71046

== ENCOUNTER 2024-04-21 10:46 | Outpatient (CLI) | payer BC, SELFPAY ==
--- NOTE | 2024-04-21 | DI.RAD_ITS ---
Exam(s) XR FOOT LT COMPLETE EXAM: XR FOOT LT COMPLETE CLINICAL HISTORY: SEVERE PAIN, WORSE IN ACHILLES, ? BONE SPUR. TECHNIQUE: 2D digital imaging was performed of the left foot. Three images were obtained. AP, obli que and lateral views were obtained. COMPARISON: There are no priors for comparison. FINDINGS: BONES: No acute fracture is present. No bony destructive lesion is seen. There is an enthesophyte at the posterior calcaneus at the Achilles insertion site. JOINTS: No dislocation present. SOFT TISSUE: There is a 3 mm curvilinear density in the soft tissues between the 3rd and 4th metatars ophalangeal joints which may represent a foreign body. IMPRESSION: 1. Enthesophyte at the posterior calcaneus. 2. 3 mm curvilinear foreign body in the soft tissues between the 3rd and 4th MTP joints. Please benson elate with clinical history. DATA REPOSITORY: RADIATION DOSE DELIVERED:
--- NOTE | 2024-04-21 | DI.RAD_ITS ---
Exam(s) XR FOOT RT COMPLETE EXAM: XR FOOT RT COMPLETE CLINICAL HISTORY: PAIN, SEVERE WORSE IN ACHILLES, ? BONE SPUR. TECHNIQUE: 2D digital imaging was performed of the right foot. Three images were obtained. AP, obl ique and lateral views were obtained. COMPARISON: No exams were available for comparison FINDINGS: BONES: No acute fracture is present. No bony destructive lesion is seen. There is an enthesophyte at the posterior calcaneus. There is no evidence of a plantar calcaneal spur. There is loss of volume o f the head of the 3rd metatarsal which can be seen with avascular necrosis. Prior trauma or arthrosis should also be considered. JOINTS: No dislocation present. SOFT TISSUE: Normal. IMPRESSION: Enthesophyte at the insertion site of the Achilles. If there is concern for Achilles pathology, an M RI should be considered for further evaluation. DATA REPOSITORY: RADIATION DOSE DELIVERED:
== END 2024-04-21 11:06 ==
LOC: DI 10:51
PROVIDERS: Visit Provider Nurse Practitioner Family
DX: M77.51 Other enthesopathy of right foot and ankle (principal)
CPT/HCPCS: 73630